=== PATIENT | male | born 1930 | race Caucasian/White ===

== ENCOUNTER 2019-08-30 23:11 | Emergency (ER) | payer MEDICARE, BC ==
[2019-08-30] MEDS ORDERED: LORazepam 0.5 MG Tab PO ONE (23:12)
[2019-08-30 23:48] VITALS: BP 150/83; PULSE 69
--- NOTE | 2019-08-31 00:10 | EDM.PDOC ---
ED HPI GENERAL MEDICAL PROBLEM - General Chief Complaint: Respiratory Problem Stated Complaint: TROUBLE BREATHING Time Seen by Provider: 08/30/19 23:58 Source of Information: Reports: Patient History Limitations: Reports: No Limitations - History of Present Illness INITIAL COMMENTS - FREE TEXT/NARRATIVE: This 89 yo male patient reports to the ED due to drainage in the back of his throat at night causing him to be anxious about his breathing. The patient reports he has had increased problems over the past 2 week. The patient reports he has not been seen by his primary care facility for these symptoms. The patient reports when he noticed the drainage, he has to get out of bed and walk around. The patient reports he has had to be on medications for scans in the past with similar symptoms. Onset: Unknown/Unsure Duration: Week(s):, Intermittent Location: Reports: Other Quality: Reports: Other Severity: Moderate Improves with: Reports: None Worsens with: Reports: None Context: Reports: Other Associated Symptoms: Reports: No Other Symptoms - Related Data Allergies Allergy/AdvReac Type Severity Reaction Status Date / Time atenolol Allergy Mild Dizziness Verified 08/30/19 23:48 Home Meds: Home Meds Aspirin [Children's Aspirin] 81 mg PO ASDIRECTED 08/23/14 [History] Chlorthalidone 25 mg PO DAILY 08/23/14 [History] Dutasteride/Tamsulosin HCl [Kristyn 0.5-0.4 MG] 0.4 mg PO DAILY 08/23/14 [History] Lutein/Minerals/Vit A,C & E [Ocuvite] 1 tab PO DAILY 08/23/14 [History] Nitroglycerin [Nitrostat] 0.4 mg SL ASDIRECTED 08/23/14 [History] Finasteride [Proscar] 5 mg PO DAILY 12/25/15 [History] Metoprolol Tartrate [Lopressor] 25 mg PO BID 12/25/15 [History] Past Medical History HEENT History: Reports: Cataract, Hard of Hearing, Macular Degeneration, Other ( See Below) Other HEENT History: 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 Cardiovascular History: Reports: High Cholesterol, Hypertension, Pacemaker Gastrointestinal History: Reports: Other (See Below) Other Gastrointestinal History: ing. 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, Non-Hodgkin's Lymphoma, Other (See Below) Other Oncologic History: had radiation tx for that - Infectious Disease History Infectious Disease History: Reports: Chicken Pox - Past Surgical History HEENT Surgical History: Reports: Laser Surgery Social & Family History - Family History Family Medical History: Noncontributory - Tobacco Use Smoking Status *Q: Never Smoker Second Hand Smoke Exposure: No - Caffeine Use Caffeine Use: Reports: None - Recreational Drug Use Recreational Drug Use: No ED ROS GENERAL - Review of Systems Review Of Systems: Comprehensive ROS is negative, except as noted in HPI. ED EXAM, GENERAL - Physical Exam Exam: See Below Exam Limited By: No Limitations General Appearance: Alert, WD/WN, Mild Distress Eye Exam: Bilateral Eye: EOMI, Normal Inspection, PERRL Ears: Normal External Exam, Normal Canal, Hearing Grossly Normal, Normal TMs, Other (hearing aid in left ear) Nose: Normal Inspection, Normal Mucosa, No Blood Throat/Mouth: Normal Inspection, Normal Lips, Normal Teeth, Normal Gums, Normal Oropharynx, Normal Voice, No Airway Compromise, Other (scant transudate in posterior pharynx) Head: Atraumatic, Normocephalic Neck: Normal Inspection, Supple, Non-Tender, Full Range of Motion Respiratory/Chest: No Respiratory Distress, Lungs Clear, Normal Breath Sounds, No Accessory Muscle Use, Chest Non-Tender Cardiovascular: Normal Peripheral Pulses, Regular Rate, Rhythm, No Edema, No Gallop, No JVD, No Murmur, No Rub GI/Abdominal: Normal Bowel Sounds (Male) Exam: Deferred Rectal (Males) Exam: Deferred Back Exam: Normal Inspection, Full Range of Motion, NT Extremities: Normal Inspection, Normal Range of Motion, Non-Tender, Normal Capillary Refill, No Pedal Edema Neurological: Alert, Oriented, CN II-XII Intact, Normal Cognition, Normal Gait, Normal Reflexes, No Motor/Sensory Deficits Psychiatric: Normal Affect, Normal Mood Skin Exam: Warm, Dry, Intact, Normal Color, No Rash Lymphatic: No Adenopathy Course - Vital Signs Last Recorded V/S: Last Vital Signs Temp 35.9 C L 08/30/19 23:41 Pulse 69 08/30/19 23:41 Resp 16 08/30/19 23:41 BP 150/83 H 08/30/19 23:41 Pulse Ox 98 08/30/19 23:41 Departure - Departure Time of Disposition: 00:07 Disposition: Home, Self-Care 01 Condition: Fair Clinical Impression: Post-nasal drainage, Anxiety - Discharge Information *PRESCRIPTION DRUG MONITORING PROGRAM REVIEWED*: Not Applicable *COPY OF PRESCRIPTION DRUG MONITORING REPORT IN PATIENT AMADOR: Not Applicable Instructions: Postnasal Drip Forms: ED Department Discharge Care Plan Goals: The patient and his were advised of the examination results during the visit. The patient was discharged with Ativan (0.5 mg) #2 to take 1 by mouth every 6 hours as needed for anxiety. The patient was encouraged to follow-up with his primary care facility for continued evaluation and further management. If the patient has any additional symptoms or concerns, the patient should either return to the emergency department or visit his primary care facility. Sepsis Event Note - Evaluation Sepsis Screening Result: No Definite Risk - Focused Exam Vital Signs: Vital Signs Temp Pulse Resp BP Pulse Ox 08/30/19 23:41 35.9 C L 69 16 150/83 H 98 Date Exam was Performed: 08/31/19 Time Exam was Performed: 00:10
[2019-08-31] MEDS ORDERED: LORazepam 0.5 MG Tab ONE (00:16)
== END 2019-08-31 00:19 | disposition home or self-care (01) ==
LOC: DL.ED 23:11
DX: R09.82 Postnasal drip (principal); F41.9 Anxiety disorder, unspecified; I10 Essential (primary) hypertension; E78.00 Pure hypercholesterolemia, unspecified; Z79.82 Long term (current) use of aspirin; Z88.8 Allergy status to other drugs, medicaments and biological substances; Z79.899 Other long term (current) drug therapy
CPT/HCPCS: 99283; A9270-GY

== ENCOUNTER 2019-09-24 17:58 | Emergency (ER) | payer MEDICARE, BC ==
[2019-09-24 18:22] VITALS: BP 157/67; PULSE 71
--- NOTE | 2019-09-24 19:18 | EDM.PDOC ---
ED HPI GENERAL MEDICAL PROBLEM - General Chief Complaint: Respiratory Problem Stated Complaint: HARDTIME BREATHING Time Seen by Provider: 09/24/19 19:02 Source of Information: Reports: Patient History Limitations: Reports: No Limitations - History of Present Illness INITIAL COMMENTS - FREE TEXT/NARRATIVE: This 89 yo male patient reports to the ED due to increased shortness of breath. The patient reports his shortness of breath started at about 1700 today. The patient reports he has had increased post nasal drip over the past 2 weeks and difficulties clearing out the sputum. The patient did call the clinic and was given lorazapam which seems to help him sleep. Onset: Gradual Duration: Week(s):, Constant Location: Reports: Head, Other Quality: Reports: Other Severity: Moderate Improves with: Reports: None Worsens with: Reports: None Context: Reports: Other Associated Symptoms: Reports: Cough, Shortness of Breath Treatments PROCEDURE ANALYST: Reports: Other Medication(s), Other (see below) Other Treatments PROCEDURE ANALYST: lorazepam - Related Data Allergies Allergy/AdvReac Type Severity Reaction Status Date / Time atenolol Allergy Mild Dizziness Verified 09/24/19 18:30 Home Meds: Home Meds Aspirin [Children's Aspirin] 81 mg PO DAILY 08/23/14 [History] Chlorthalidone 25 mg PO DAILY 08/23/14 [History] Dutasteride/Tamsulosin HCl [Kristyn 0.5-0.4 MG] 0.4 mg PO DAILY 08/23/14 [History] Lutein/Minerals/Vit A,C & E [Ocuvite] 1 tab PO DAILY 08/23/14 [History] Nitroglycerin [Nitrostat] 0.4 mg SL ASDIRECTED 08/23/14 [History] Finasteride [Proscar] 5 mg PO DAILY 12/25/15 [History] Metoprolol Tartrate [Lopressor] 25 mg PO BID 12/25/15 [History] LORazepam [Lorazepam] 0.5 mg PO TID PRN 09/24/19 [History] Past Medical History HEENT History: Reports: Cataract, Hard of Hearing, Macular Degeneration, Other ( See Below) Other HEENT History: 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 Cardiovascular History: Reports: High Cholesterol, Hypertension, Pacemaker Respiratory History: Reports: None Gastrointestinal History: Reports: Other (See Below) Other Gastrointestinal History: ing. 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, Non-Hodgkin's Lymphoma, Other (See Below) Other Oncologic History: had radiation tx for that Dermatologic History: Reports: None - Infectious Disease History Infectious Disease History: Reports: None - Past Surgical History HEENT Surgical History: Reports: Laser Surgery Cardiovascular Surgical History: Reports: None GI Surgical History: Reports: Hernia Repair/Other Social & Family History - Family History Family Medical History: Noncontributory - Tobacco Use Smoking Status *Q: Never Smoker Second Hand Smoke Exposure: No - Caffeine Use Caffeine Use: Reports: Coffee - Recreational Drug Use Recreational Drug Use: No ED ROS GENERAL - Review of Systems Review Of Systems: Comprehensive ROS is negative, except as noted in HPI. ED EXAM, GENERAL - Physical Exam Exam: See Below Exam Limited By: No Limitations General Appearance: Alert, WD/WN, Anxious Eye Exam: Bilateral Eye: EOMI, Normal Inspection, PERRL Ears: Normal External Exam, Normal Canal, Hearing Grossly Normal, Normal TMs Nose: Normal Inspection, Normal Mucosa, No Blood Throat/Mouth: Normal Inspection, Normal Lips, Normal Teeth, Normal Gums, Normal Oropharynx, Normal Voice, No Airway Compromise Head: Atraumatic, Facial Tenderness, Sinus Tenderness Neck: Normal Inspection, Supple, Non-Tender, Full Range of Motion Respiratory/Chest: No Respiratory Distress, Lungs Clear, Normal Breath Sounds, No Accessory Muscle Use, Chest Non-Tender Cardiovascular: Normal Peripheral Pulses, Regular Rate, Rhythm, No Edema, No Gallop, No JVD, No Murmur, No Rub GI/Abdominal: Normal Bowel Sounds, Soft, Non-Tender, No Organomegaly, No Distention, No Abnormal Bruit, No Mass (Male) Exam: Deferred Rectal (Males) Exam: Deferred Back Exam: Normal Inspection, Full Range of Motion, NT Extremities: Normal Inspection, Normal Range of Motion, Non-Tender, Normal Capillary Refill, No Pedal Edema Neurological: Alert, Oriented, CN II-XII Intact, Normal Cognition, Normal Gait, Normal Reflexes, No Motor/Sensory Deficits Psychiatric: Normal Affect, Normal Mood Skin Exam: Warm, Dry, Intact, Normal Color, No Rash Lymphatic: No Adenopathy Course - Vital Signs Last Recorded V/S: Last Vital Signs Temp 37.1 C 09/24/19 18:21 Pulse 71 09/24/19 18:21 Resp 20 09/24/19 18:21 BP 157/67 H 09/24/19 18:21 Pulse Ox 100 09/24/19 18:21 - Orders/Labs/Meds Orders: Active Orders 24 hr Category Date Time Status EKG Documentation Completion [RC] URGENT Care 09/24/19 19:11 Active Chest 2V [CR] Urgent Exams 09/24/19 19:11 Ordered COMPREHENSIVE METABOLIC PN,CMP [CHEM] Urgent Lab 09/24/19 19:32 Received TROPONIN I [CHEM] Urgent Lab 09/24/19 19:32 Received Labs: Laboratory Tests 09/24/19 Range/Units 19:32 WBC 7.2 (5.0-10.0) 10^3/uL RBC 4.24 L (4.6-6.2) 10^6/uL Hgb 14.1 (14.0-18.0) g/dL Hct 40.8 (40.0-54.0) % MCV 96.2 D (80-100) fL MCH 33.3 (27.0-34.0) pg MCHC 34.6 (33.0-35.0) g/dL Plt Count 189 (150-450) 10^3/uL Neut % (Auto) 70.7 (42.2-75.2) % Lymph % (Auto) 16.4 L (20.5-50.1) % [place] % (Auto) 10.7 H (2-8) % Eos % (Auto) 1.8 (1.0-3.0) % Baso % (Auto) 0.4 (0.0-1.0) % Meds: Medications Discontinued Medications Generic Name Dose Route Start Last Admin Trade Name Freq PRN Reason Stop Dose Admin Azithromycin 500 mg 09/24/19 19:43 09/24/19 19:50 Zithromax PO 09/24/19 19:44 500 mg ONETIME ONE Administration Departure - Departure Time of Disposition: 19:51 Disposition: Home, Self-Care 01 Condition: Fair Clinical Impression: Anxiety Sinusitis Qualifiers: Sinusitis location: maxillary Chronicity: acute Recurrence: non-recurrent Qualified Code(s): J01.00 - Acute maxillary sinusitis, unspecified - Discharge Information *PRESCRIPTION DRUG MONITORING PROGRAM REVIEWED*: Not Applicable *COPY OF PRESCRIPTION DRUG MONITORING REPORT IN PATIENT AMADOR: Not Applicable Instructions: Sinusitis, Adult, [id number] Forms: ED Department Discharge Care Plan Goals: The patient was advised of the examination, lab, EKG and x-ray results during the visit. The patient was given an oral dose of Azithromycin (500 mg) while in the ED. The patient was discharged with a script for Azithromycin (250 mg) #4 to take 1 by mouth daily for 4 days. The patient was encouraged to continue to take his other medications as prescribed. The patient should follow-up with his primary care facility for continued evaluation and further treatment. If the patient has any additional symptoms or concerns, the patient should either return to the emergency department or visit his primary care facility. Sepsis Event Note - Evaluation Sepsis Screening Result: No Definite Risk - Focused Exam Vital Signs: Vital Signs Temp Pulse Resp BP Pulse Ox 09/24/19 18:21 37.1 C 71 20 157/67 H 100 Date Exam was Performed: 09/24/19 Time Exam was Performed: 19:51 - My Orders Last 24 Hours: My Active Orders 09/24/19 19:11 EKG Documentation Completion [RC] URGENT Chest 2V [CR] Urgent 09/24/19 19:32 COMPREHENSIVE METABOLIC PN,CMP [CHEM] Urgent TROPONIN I [CHEM] Urgent - Assessment/Plan Last 24 Hours: My Active Orders 09/24/19 19:11 EKG Documentation Completion [RC] URGENT Chest 2V [CR] Urgent 09/24/19 19:32 COMPREHENSIVE METABOLIC PN,CMP [CHEM] Urgent TROPONIN I [CHEM] Urgent
[2019-09-24] MEDS ORDERED: Azithromycin 250 MG Tab PO ONE (19:43)
[2019-09-24 20:01] LABS: ANION GAP 13.8 mEq/L (7-13); CHLORIDE,CL 102 mmol/L (98-107); SODIUM,NA 141 mmol/L (136-145)
== END 2019-09-24 20:03 | disposition home or self-care (01) ==
LOC: DL.ED 17:58
DX: J01.00 Acute maxillary sinusitis, unspecified (principal); F41.9 Anxiety disorder, unspecified; I10 Essential (primary) hypertension; M19.90 Unspecified osteoarthritis, unspecified site; Z88.8 Allergy status to other drugs, medicaments and biological substances; Z79.82 Long term (current) use of aspirin; Z79.899 Other long term (current) drug therapy
CPT/HCPCS: 36415; 71046; 80053; 84484; 85025; 93005; 99285; A9270; 99283